=== PATIENT | female | born 1975 | race Asian ===

== ENCOUNTER 2017-01-28 09:58 | Emergency (ER) | payer OTHER ==
[~2017-01-28] VITALS: Ht 157.5 cm; Wt 71.0 kg
[~2017-01-28 09:58] MED LIST: ACET650T85
[2017-01-28 10:03] VITALS: Ht 157.5 cm; Wt 71.0 kg
[2017-01-28] MEDS ORDERED: ONDANSETRON (ODT) 4 MG TAB ODT STA (10:39)
[2017-01-28] MEDS ORDERED: ACETAMINOPHEN 500 MG TAB PO STA (10:39)
[2017-01-28] MEDS ORDERED: SOD CHLORIDE 0.9% 1,000 ML IV ONE (11:00)
[2017-01-28] MEDS ORDERED: CYCLOBENZAPRINE 10 MG TAB PO ONE (11:00)
--- NOTE | 2017-01-28 11:00 | ERD ---
ER Documentation Chief Complaint Date/Time DATE: 01/28/17 TIME: 10:52 Chief Complaint Complains of a headache x 3 days HPI Patient is a 41-year-old female with no past medical history who presents to the ED with a gradual onset right-sided headache, right neck pain and right arm pain 3 days. She states that she has had this pain in the past and this is similar to what she has experienced in the past. Denies any trauma or falls. She has taken ibuprofen which has not helped with her symptoms. She denies blurry vision. She denies nausea or vomiting. She denies fever or chills. She denies recent URIs. She states that she has to turn her head to the left due to the pain on the right side of her neck. She also complains of right ear and right sinus pain. ROS All systems reviewed and are negative except as per history of present illness. Medications Home Meds Active Scripts Cyclobenzaprine Hcl* (Cyclobenzaprine Hcl*) 10 Mg Tablet, 10 MG PO TID, #15 TAB Prov:ANA LEES PA-C 01/28/17 Neomycin/Polymyxin/Hydrocort* (Cortisporin* Otic) 10 Ml Susp, 4 DROP RIGHT EAR QID for 7 Days, EA Prov:ANA LEES PA-C 01/28/17 Acetaminophen/Aspirin/Caffeine* (Excedrin*) 1 Tab Tab, 1 TAB PO BID for 14 Days , TAB Prov:ANA LEES PA-C 01/28/17 Reported Medications Acetaminophen (Tylenol 8 Hour) 650 Mg Tablet.sa 08/10/12 [none] No Conflict Check 06/27/11 Allergies Allergies: Coded Allergies: No Known Drug Allergies (Verified Allergy, 10/04/12) PMhx/Soc History of Surgery: Yes (open abd surgery s/p trauma 02/20) Anesthesia Reaction: No Hx Neurological Disorder: No Hx Respiratory Disorders: No Hx Cardiac Disorders: No Hx Psychiatric Problems: No Hx Miscellaneous Medical Probl: No Hx Alcohol Use: No Hx Substance Use: No Hx Tobacco Use: No Smoking Status: Never smoker FmHx Family History: No coronary disease, No diabetes, No other Physical Exam Vitals Vital Signs Date Time Temp Pulse Resp B/P Pulse Ox O2 Delivery O2 Flow Rate FiO2 01/28/17 10:03 98.5 101 20 132/69 99 Physical Exam GENERAL: Well-developed, well-nourished female. Appears in no acute distress. HEAD: Normocephalic, atraumatic. EYES: Pupils are equally reactive bilaterally. EOMs grossly intact. No conjunctival erythema. ENT: Moist mucous membranes. No uvula deviation. No kissing tonsils. No exudates. Slight tenderness with insertion of speculum in the right ear. No pinna or tragus tenderness NECK: Supple. No lymphadenopathy or thyromegaly. No meningismus. negative kernig. negative brudinski. Tenderness on the right side of her neck. No spinal tenderness. No step-offs or deformities. Positive cervical radiculopathy on the right side. LUNG: Clear to auscultation bilaterally. No rhonchi, wheezing, rales or coarse breath sounds. HEART: Regular rate and rhythm. No murmurs, rubs or gallops. ABDOMEN: No scars, ecchymosis or rashes noted. Soft, nontender, and nondistended. Positive bowel sounds in all four quadrants. No rebound tenderness , no guarding. (-) McBurneys point tenderness. No CVA tenderness. BACK: No midline tenderness. Extremities: Equal pulses bilaterally. No peripheral clubbing, cyanosis or edema. No unilateral leg swelling. NEUROLOGIC: Alert and oriented. Moving all four extremities. 5/5 strength in all extremities. Normal speech. Steady gait. No ataxia. Negative Romberg test. Cranial nerves II through XII intact. SKIN: Normal color. Warm and dry. No rashes or lesions. Capillary refill < 2 seconds Results 24 hrs Current Medications Medications (Trade) Dose Ordered Sig/[place] Route PRN Reason Start Time Stop Time Status Last Admin Dose Admin Sodium Chloride (NS) 1,000 ml @ 1,000 mls/hr Q1H ONCE IV 01/28/17 11:00 01/28/17 11:59 DC 01/28/17 10:58 Cyclobenzaprine HCl (Flexeril) 10 mg ONCE ONCE PO 01/28/17 11:00 01/28/17 11:01 DC 01/28/17 10:58 Acetaminophen (Tylenol Tab) 1,000 mg ONCE STAT PO 01/28/17 10:39 01/28/17 10:47 DC 01/28/17 10:58 Ondansetron HCl (Zofran Odt) 4 mg ONCE STAT ODT 01/28/17 10:39 01/28/17 10:47 DC 01/28/17 10:58 Procedures/MDM ER COURSE: I kept the patient and/or family informed of laboratory and diagnostic imaging results throughout the emergency room course. MEDICATIONS IV fluids, Tylenol, Flexeril and Zofran. Tolerated well and stated improvement in symptoms. Negative test. MEDICAL DECISION MAKING: This is a 41-year-old who presents with gradual onset headache, neck pain 3 days Vital signs were reviewed. Patient is afebrile. Patient is not hypoxic. Patient is not toxic or ill-appearing. Patient's headache is mild with mild right-sided neck pain. I reexamined patient after administration of Medication and she stated improvement. At this point I do not think a CT scan is warranted as patient is neurovascularly intact, did not have a sudden onset of headache and it is similar to what she has experienced in the past. There is also no trauma. I believe that the risks outweigh the benefits of a CT scan. Low suspicion for intracranial hemorrhage, meningitis, intracranial mass , concussion, temporal arteritis, stroke, elevated intracranial pressure, seizure. Low suspicion for dislocation, fracture, epidural abscess, herniation , osteomyelitis, meningitis, neurological deficit DISCHARGE: At this time, patient is stable for discharge and outpatient management with no new complaints during the ER course. Patient was sent home with Flexeril, Corticosporin otic and Excedrin. Patient will be discharged home with instructions to recheck for new or worsening symptoms such as fever, nausea, weakness, LOC and to follow up with primary care in the next 1-2 days. Patient was advised to return to the ER for any new or worsening symptoms. Plan was discussed and patient and/or family understands and agrees. Home instructions were given. Departure Diagnosis: Primary Impression: Headache Headache type: unspecified Headache chronicity pattern: unspecified pattern Intractability: not intractable Qualified Code: R51 - Nonintractable headache, unspecified chronicity pattern, unspecified headache type Additional Impressions: Ear pain, right Neck pain Condition: Stable ANA LEES PA-C Jan 28, 2017 11:00 ANA LEES PA-C Jan 28, 2017 11:00
[2017-01-28] MEDS ORDERED: EXCED PO (13:07)
[2017-01-28] MEDS ORDERED: CYCL-319 PO (13:08)
[2017-01-28] MEDS ORDERED: NPH10OT RIGHT EAR (13:08)
== END 2017-01-28 13:23 | disposition home or self-care (01) ==
LOC: FTE 09:58
DX: R51 Headache (principal); H92.01 Otalgia, right ear; M54.2 Cervicalgia
CPT/HCPCS: J7030; Z7610

== ENCOUNTER 2017-06-19 08:20 | Emergency (ER) | payer OTHER ==
[~2017-06-19] VITALS: Ht 157.5 cm; Wt 68.9 kg
[~2017-06-19 08:20] MED LIST changes: +CYCL-319 PO; +EXCED PO; +NPH10OT RIGHT EAR
[2017-06-19 08:25] VITALS: Ht 157.5 cm; Wt 68.9 kg
[2017-06-19] MEDS ORDERED: ONDANSETRON (ODT) 4 MG TAB ODT STA ×2 (08:43)
[2017-06-19] MEDS ORDERED: HYDROCODONE/APAP (5/325) TAB PO ONE (09:00)
--- NOTE | 2017-06-19 09:14 | RADRPT ---
PROCEDURE: CT brain without contrast CLINICAL INDICATION: Status post fall, trauma/injury right side of head TECHNIQUE: CT of the brain without contrast was performed on a multidetector CT scanner, with multi planar reformats. One or more of the following dose reduction techniques were used: Automated expos ure control, adjustment in mA and / or kV according to patient size, use of iterative reconstructive technique. CTDIvol = 42 mGy; DLP = 630 mGy-cm. COMPARISON: CT brain 10/04/2012 FINDINGS: No acute intracranial hemorrhage is identified. No extra-axial fluid collection is seen. There is no mass effect. No midline shift is identified. Ventricles and sulci are within normal limits for size and configuration. The density of the brain is within normal limits. Vizcarra-white differentiation is preserved. Calvarium and skull base are intact. Mastoid air cells and imaged paranasal sinuses grossly clear. IMPRESSION: Unremarkable noncontrast CT of the brain. RPTAT: VV .Ki Bhakta MD, MD Date Time Electronically viewed and signed by .Ki Bhakta MD, on 06/19/2017 09:14 .O/
--- NOTE | 2017-06-19 09:22 | RADRPT ---
PROCEDURE: CT cervical spine without contrast. CLINICAL INDICATION: Status post fall, pain right neck TECHNIQUE: CT of the cervical spine without contrast was performed on a multidetector CT scanner, w ith multiplanar reformats. One or more of the following dose reduction techniques were used: Automa eusebio exposure control, adjustment in mA and / or kV according to patient size, use of iterative recon structive technique. CTDIvol = 22 mGy and DLP = 410 mGy-cm. COMPARISON: None available. FINDINGS: No fracture or dislocation is identified. There is straightening of the lordosis of the cervical sp ine. Alignment is intact. The vertebral bodies are maintained in height. There are mild anterior atlantoaxial joint degenerative changes. Disc spaces are maintained in height. Minimal to mild pos terior disc bulging is seen at C2-3 through C6-7 without central canal stenosis or foraminal narrowi ng identified. IMPRESSION: 1. No fracture/dislocation. 2. Mild cervical spondylosis described above. RPTAT: VV .Ki Bhakta MD, MD Date Time Electronically viewed and signed by .Ki Bhakta MD, on 06/19/2017 09:22 .O/
--- NOTE | 2017-06-19 09:32 | ERD ---
ER Documentation Chief Complaint Chief Complaint Neck/shoulder pain x yesterday after s/f HPI This is a 41-year-old female who presents the emergency department today complaining of headache and dizziness and neck pain after slipping and falling on the floor yesterday. Patient states that she threw up 3 times last night and has a headache but she does have a history of headaches. Denies any fevers or chills. Denies any loss of consciousness ROS All systems reviewed and are negative except as per history of present illness. Medications Home Meds Active Scripts Ondansetron Hcl* (Zofran*) 4 Mg Tablet, 4 MG PO Q6H for NAUSEA AND/OR VOMITING, #30 TAB Prov:OFELIA ISIDRO PA-C 06/19/17 Cyclobenzaprine Hcl* (Cyclobenzaprine Hcl*) 10 Mg Tablet, 10 MG PO QHS, #7 TAB Prov:OFELIA ISIDRO PA-C 06/19/17 Acetaminophen* (Tylophen*) 500 Mg Capsule, 1 CAP PO Q6H Y for PAIN AND OR ELEVATED TEMP, #30 CAP Prov:OFELIA ISIDRO PA-C 06/19/17 Tramadol HCl (Tramadol HCl) 50 Mg Tablet, 50 MG PO Q4 Y for PAIN, #20 TAB Prov:OFELIA ISIDRO PA-C 06/19/17 Cyclobenzaprine Hcl* (Cyclobenzaprine Hcl*) 10 Mg Tablet, 10 MG PO TID, #15 TAB Prov:ANA LEES PA-C 01/28/17 Neomycin/Polymyxin/Hydrocort* (Cortisporin* Otic) 10 Ml Susp, 4 DROP RIGHT EAR QID for 7 Days, EA Prov:ANA LEES PA-C 01/28/17 Acetaminophen/Aspirin/Caffeine* (Excedrin*) 1 Tab Tab, 1 TAB PO BID for 14 Days , TAB Prov:ANA LEES PA-C 01/28/17 Reported Medications Acetaminophen (Tylenol 8 Hour) 650 Mg Tablet.sa 08/10/12 [none] No Conflict Check 06/27/11 Allergies Allergies: Coded Allergies: No Known Drug Allergies (Verified Allergy, Unknown, 06/19/17) PMhx/Soc History of Surgery: Yes (open abd surgery s/p trauma 02/20) Anesthesia Reaction: No Hx Neurological Disorder: No Hx Respiratory Disorders: No Hx Cardiac Disorders: No Hx Psychiatric Problems: No Hx Miscellaneous Medical Probl: No Hx Alcohol Use: No Hx Substance Use: No Hx Tobacco Use: No Smoking Status: Never smoker Physical Exam Vitals Vital Signs Date Time Temp Pulse Resp B/P Pulse Ox O2 Delivery O2 Flow Rate FiO2 06/19/17 08:25 97.8 74 18 124/73 99 Physical Exam Const: NAD Head: Atraumatic Eyes: Normal Conjunctiva PERRLA. EOM intact. ENT: Normal External Ears, Nose and Mouth. Tympanum. No epistaxis. Neck: Decreased range of motion due to pain..~ No meningismus. Midline tenderness and bilateral paraspinal tenderness. Pulses 2+. Distal neurovascularly intact. Resp: Clear to auscultation bilaterally Cardio: Regular rate and rhythm, no murmurs Abd: Soft, non tender, non distended. Normal bowel sounds Skin: No petechiae or rashes Back: No midline or flank tenderness Ext: No cyanosis, or edema Neur: Awake and alert. Cranial nerves II through XII intact. No gait ataxia. Psych: Normal Mood and Affect Results 24 hrs Laboratory Tests Test 06/19/17 08:50 Urine Color STRAW Urine Clarity CLEAR Urine pH 6.0 Urine Specific [place] 1.006 Urine Ketones NEGATIVEmg/dL Urine Nitrite NEGATIVEmg/dL Urine Bilirubin NEGATIVEmg/dL Urine Urobilinogen NEGATIVEmg/dL Urine Leukocyte Esterase NEGATIVELeu/ul Urine Microscopic RBC 2/HPF Urine Microscopic WBC 1/HPF Urine Squamous Epithelial Cells FEW/HPF Urine Hemoglobin 1+mg/dL Urine Glucose NEGATIVEmg/dL Urine Total Protein NEGATIVEmg/dl Current Medications Medications (Trade) Dose Ordered Sig/[place] Route PRN Reason Start Time Stop Time Status Last Admin Dose Admin Acetaminophen/ Hydrocodone Bitart ([place]hey (5/325)) 1 tab ONCE ONCE PO 06/19/17 09:00 06/19/17 09:01 DC 06/19/17 08:55 Ondansetron HCl (Zofran Odt) 4 mg ONCE STAT ODT 06/19/17 08:43 06/19/17 08:45 DC 06/19/17 08:55 Ondansetron HCl (Zofran Odt) 4 mg ONCE STAT ODT 06/19/17 08:43 06/19/17 08:45 DC DIAGNOSTIC IMAGING REPORT Patient: BLAKE CASTREJON : 1975 Age: 41 Sex: F MR #: [id number] DOS: 06/19/17 0000 Ordering MD: OFELIA ISIDRO PA-C Location: [facility] Room/Bed: PROCEDURE: CT brain without contrast CLINICAL INDICATION: Status post fall, trauma/injury right side of head TECHNIQUE: CT of the brain without contrast was performed on a multidetector CT scanner, with multiplanar reformats. One or more of the following dose reduction techniques were used: Automated exposure control, adjustment in mA and / or kV according to patient size, use of iterative reconstructive technique. CTDIvol = 42 mGy; DLP = 630 mGy-cm. COMPARISON: CT brain 10/04/2012 FINDINGS: No acute intracranial hemorrhage is identified. No extra-axial fluid collection is seen. There is no mass effect. No midline shift is identified. Ventricles and sulci are within normal limits for size and configuration. The density of the brain is within normal limits. Vizcarra-white differentiation is preserved. Calvarium and skull base are intact. Mastoid air cells and imaged paranasal sinuses grossly clear. IMPRESSION: Unremarkable noncontrast CT of the brain. RPTAT: VV .Ki Bhakta MD, MD Date Time Electronically viewed and signed by .Ki Bhakta MD, MD on 06/19/2017 09:14 .O/ CC: OFELIA ISIDRO PA-C DIAGNOSTIC IMAGING REPORT Patient: BLAKE CASTREJON : 1975 Age: 41 Sex: F MR #: [id number] DOS: 06/19/17 0000 Ordering MD: OFELIA ISIDRO PA-C Location: [facility] Room/Bed: PROCEDURE: CT cervical spine without contrast. CLINICAL INDICATION: Status post fall, pain right neck TECHNIQUE: CT of the cervical spine without contrast was performed on a multidetector CT scanner, with multiplanar reformats. One or more of the following dose reduction techniques were used: Automated exposure control, adjustment in mA and / or kV according to patient size, use of iterative reconstructive technique. CTDIvol = 22 mGy and DLP = 410 mGy-cm. COMPARISON: None available. FINDINGS: No fracture or dislocation is identified. There is straightening of the lordosis of the cervical spine. Alignment is intact. The vertebral bodies are maintained in height. There are mild anterior atlantoaxial joint degenerative changes. Disc spaces are maintained in height. Minimal to mild posterior disc bulging is seen at C2-3 through C6-7 without central canal stenosis or foraminal narrowing identified. IMPRESSION: 1. No fracture/dislocation. 2. Mild cervical spondylosis described above. RPTAT: VV .Ki Bhakta MD, MD Date Time Electronically viewed and signed by .Ki Bhakta MD, MD on 06/19/2017 09:22 .O/ CC: OFELIA ISIDRO PA-C Procedures/MDM This is a 41-year-old female who presents the emergency department today complaining of right-sided headache and neck pain after slipping and falling on the floor yesterday. Patient denies any loss of consciousness however she did state that she will vomited last night and she feels dizzy. Given patient's symptoms I did obtain images. Per the radiology report images of the vocal spine show no fracture dislocation. There is straightening of the lordosis of the cervical spine. There are mild degenerative changes. There is minimal to mild posterior disc bulging seen at C2 through 3 and C6 through 7 without central canal stenosis or foraminal narrowing. CT noncontrast is unremarkable. There is no mass-effect, midline shift there is no acute intracranial hemorrhage. UA is negative for infection. Symptoms at this time is consistent with acute head injury and neck pain secondary to fall. Low suspicion, for acute hemorrhage, mass, meningitis, acute fracture or dislocation. Given Hershey and Zofran here in the emergency department and symptoms improved. She will be given a prescription for tramadol, Zofran, Tylenl and Flexeril for home. At this time the patient is stable for discharge and outpatient management. Patient should follow up with their PCP in the next 1-2 days. They may return to the emergency department sooner for any persistent or worsening of symptoms. Patient understood and agreed with the plan. Departure Diagnosis: Primary Impression: Acute head injury Encounter type: initial encounter Qualified Code: S09.90XA - Acute head injury, initial encounter Additional Impression: Injury of neck Encounter type: initial encounter Qualified Code: S19.9XXA - Injury of neck , initial encounter Condition: OFELIA Mondragon PA-C Jun 19, 2017 09:32
[2017-06-19] MEDS ORDERED: TRAM50TA2 PO (09:37)
[2017-06-19] MEDS ORDERED: CYCL-319 PO (09:38)
[2017-06-19] MEDS ORDERED: ACET500C5 PO (09:38)
[2017-06-19] MEDS ORDERED: ONDA4TAB8 PO (09:39)
== END 2017-06-19 09:48 | disposition home or self-care (01) ==
LOC: FTE 08:20
DX: S09.90XA Unspecified injury of head, initial encounter (principal); S19.9XXA Unspecified injury of neck, initial encounter; R51 Headache; W01.0XXA Fall on same level from slipping, tripping and stumbling without subsequent striking against object, initial encounter; Y92.9 Unspecified place or not applicable
CPT/HCPCS: 70450; 72125; 81001; Z7502; Z7610

== ENCOUNTER 2018-09-05 09:29 | Emergency (ER) | payer OTHER ==
[~2018-09-05] VITALS: Ht 162.6 cm; Wt 66.5 kg
[~2018-09-05 09:29] MED LIST changes: +ACET500C5 PO; -CYCL-319 PO; +CYCL10TA7 PO; +ONDA4TAB8 PO; +TRAM50TA2 PO
[2018-09-05 09:30] VITALS: BP 133/74; PULSE 76; RESP 18; Ht 162.6 cm; Wt 66.5 kg
[2018-09-05] MEDS ORDERED: SODI126M NASAL (10:44)
[2018-09-05] MEDS ORDERED: GUAI-637 PO (10:44)
--- NOTE | 2018-09-05 10:54 | ERD ---
ER Documentation Chief Complaint Chief Complaint FEVER , COUGH ,ST, STUFFY NOSE X 3 DAYS HPI 43-year-old female complaining of nasal congestion, cough, and neck pain x2 3 days. Patient reports temperature at night of 99 - 100 degrees. Cough is nonproductive, worse at night. Patient states the neck pain is on the bilateral anterior neck, only hurts when she is touching it. Denies pain at rest or with movement. In addition, patient reports pain in the right anterior chest, worse with taking deep breath or cough when coughing. Patient takes ibuprofen, which resolved the pain. By the pain returns after several hours. Denies shortness of breath. Denies abdominal pain, vomiting, diarrhea. Denies any past medical history. ROS All systems reviewed and are negative except as per history of present illness. Medications Home Meds Active Scripts Guaifenesin* (Robitussin*) 100 Mg/5 Ml Syrup, 200 MG PO Q4H PRN for COUGH, #120 ML Prov:VARGAS BARNES. [employer] 09/05/18 Sodium Chloride (Saline Nasal Mist) 126 Ml Mist, 2 SPRAY NASAL Q2H PRN for NASAL CONGESTION, #1 BOTTLE Prov:VARGAS BARNES. [employer] 09/05/18 Ondansetron Hcl* (Zofran*) 4 Mg Tablet, 4 MG PO Q6H for NAUSEA AND/OR VOMITING, #30 TAB Prov:OFELIA ISIDRO PA-C 06/19/17 Cyclobenzaprine Hcl* (Cyclobenzaprine Hcl*) 10 Mg Tablet, 10 MG PO QHS, #7 TAB Prov:OFELIA ISIDRO PA-C 06/19/17 Acetaminophen* (Tylophen*) 500 Mg Capsule, 1 CAP PO Q6H PRN for PAIN AND OR ELEVATED TEMP, #30 CAP Prov:OFELIA ISIDRO PA-C 06/19/17 Tramadol HCl (Tramadol HCl) 50 Mg Tablet, 50 MG PO Q4 PRN for PAIN, #20 TAB Prov:OFELIA ISIDRO PA-C 06/19/17 Cyclobenzaprine Hcl* (Cyclobenzaprine Hcl*) 10 Mg Tablet, 10 MG PO TID, #15 TAB Prov:ANA LEES PA-C 01/28/17 Neomycin/Polymyxin/Hydrocort* (Cortisporin* Otic) 10 Ml Susp, 4 DROP RIGHT EAR QID for 7 Days, EA Prov:ANA LEES PA-C 01/28/17 Acetaminophen/Aspirin/Caffeine* (Excedrin*) 1 Tab Tab, 1 TAB PO BID for 14 Days, TAB Prov:ANA LEES PA-C 01/28/17 Reported Medications Acetaminophen (Tylenol 8 Hour) 650 Mg Tablet.sa 08/10/12 [none] No Conflict Check 06/27/11 Allergies Allergies: Coded Allergies: No Known Drug Allergies (Verified Allergy, Unknown, 06/19/17) PMhx/Soc History of Surgery: Yes (open abd surgery s/p trauma 02/20) Anesthesia Reaction: No Hx Neurological Disorder: No Hx Respiratory Disorders: No Hx Cardiac Disorders: No Hx Psychiatric Problems: No Hx Miscellaneous Medical Probl: No Hx Alcohol Use: No Hx Substance Use: No Hx Tobacco Use: No Physical Exam Vitals Vital Signs Date Temp Pulse Resp B/P (MAP) Pulse Ox O2 O2 Flow FiO2 Time Delivery Rate 09/05/18 97.6 76 18 133/74 99 09:30 (93) Physical Exam General: Well-developed, well-nourished, conscious and coherent, in no distress Skin: Warm and dry without rash, good texture and turgor Head: Normocephalic without evidence of trauma Eyes: Sclera and conjunctivae normal Nose/Face: Nasal congestion Mouth/throat: Mucous membranes are moist. Posterior pharynx clear without erythema or exudates Neck: Supple without meningismus or adenopathy. Carotids are equal. Trachea midline. No bruits or JVD Chest: Normal AP diameter. Good expansion without retractions. Right anterior chest wall tenderness. Lungs are clear to auscultate bilaterally with good tidal volume Heart: Regular rate and rhythm. No murmur, rub, or gallops heard Extremities: Full range of motion. Good strength bilaterally. No erythema, ecchymosis, or edema. Peripheral pulses are intact. Sensation intact Neuro: Alert and oriented 4, GCS 15. Procedures/MDM Patient is afebrile, in no respiratory distress. Lungs are clear to auscultate. I doubt that patient has pneumonia or bronchitis. Likely patient's symptoms are result of viral upper respiratory infection. Patient has reproducible right chest wall tenderness, likely costochondritis secondary to coughing. Low suspicion for ACS, pneumonia, pneumothorax, PE, or aortic dissection. Patient appears well, stable for discharge and outpatient management. Medical decision making shared with patient and family. Education provided to patient and family. Patient and family expressed understanding of the plan. Medications on discharge: Saline nasal spray, Robitussin. Follow-up: Primary care provider in 2-3 days or return to ED if worse. Disclaimer: Inadvertent spelling and grammatical errors are likely due to EHR/dictation software use and do not reflect on the overall quality of patient care. Also, please note that the electronic time recorded on this note does not necessarily reflect the actual time of the patient encounter. Departure Diagnosis: Primary Impression: Upper respiratory infection URI type: acute nasopharyngitis (common cold) Qualified Codes: J00 - Acute nasopharyngitis [common cold] Condition: Stable Patient Instructions: Adult Self-Care for Colds Referrals: DOCTOR,NOT ON STAFF (PCP) Additional Instructions: Call your primary care doctor TOMORROW for an appointment during the next 2-3 days.See the doctor sooner or return here if your condition worsens before your appointment time. VARGAS BARNES NP Sep 05, 2018 10:54
== END 2018-09-05 11:03 | disposition home or self-care (01) ==
LOC: FTE 09:29
DX: J00 Acute nasopharyngitis [common cold] (principal); R40.2412 Glasgow coma scale score 13-15, at arrival to emergency department
CPT/HCPCS: 99282

== ENCOUNTER 2019-02-10 09:53 | Emergency (ER) | payer OTHER ==
[~2019-02-10] VITALS: Ht 152.4 cm; Wt 63.4 kg
[~2019-02-10 09:53] MED LIST changes: +GUAI-637 PO; +SODI126M NASAL
[2019-02-10 09:57] VITALS: BP 121/61; PULSE 64; RESP 18; Ht 152.4 cm; Wt 63.4 kg
[2019-02-10] MEDS ORDERED: CEPH-443 PO (11:11)
--- NOTE | 2019-02-10 19:46 | ERD ---
ER Documentation Chief Complaint Chief Complaint pelvic pain w/painful urination x4 days HPI 43-year-old female presents with complaint of dysuria and suprapubic pain for the past 4 days. Patient denies any treatments. Patient denies any nausea, vomiting, diarrhea, fevers, chills, back pain, hematuria, flank pain. ROS All systems reviewed and are negative except as per history of present illness. Medications Home Meds Active Scripts Cephalexin* (Keflex*) 500 Mg Capsule, 500 MG PO BID for 7 Days, CAP Prov:NANDINI LARRY 02/10/19 Guaifenesin* (Robitussin*) 100 Mg/5 Ml Syrup, 200 MG PO Q4H PRN for COUGH, #120 ML Prov:VARGAS BARNES. CAREER TRANSITION SPECIALIST 09/05/18 Sodium Chloride (Saline Nasal Mist) 126 Ml Mist, 2 SPRAY NASAL Q2H PRN for NASAL CONGESTION, #1 BOTTLE Prov:VARGAS BARNES. CAREER TRANSITION SPECIALIST 09/05/18 Ondansetron Hcl* (Zofran*) 4 Mg Tablet, 4 MG PO Q6H for NAUSEA AND/OR VOMITING, #30 TAB Prov:OFELIA ISIDRO PA-C 06/19/17 Cyclobenzaprine Hcl* (Cyclobenzaprine Hcl*) 10 Mg Tablet, 10 MG PO QHS, #7 TAB Prov:OFELIA ISIDRO PA-C 06/19/17 Acetaminophen* (Tylophen*) 500 Mg Capsule, 1 CAP PO Q6H PRN for PAIN AND OR ELEVATED TEMP, #30 CAP Prov:OFELIA ISIDRO PA-C 06/19/17 Tramadol HCl (Tramadol HCl) 50 Mg Tablet, 50 MG PO Q4 PRN for PAIN, #20 TAB Prov:OFELIA ISIDRO PA-C 06/19/17 Cyclobenzaprine Hcl* (Cyclobenzaprine Hcl*) 10 Mg Tablet, 10 MG PO TID, #15 TAB Prov:ANA LEES PA-C 01/28/17 Neomycin/Polymyxin/Hydrocort* (Cortisporin* Otic) 10 Ml Susp, 4 DROP RIGHT EAR QID for 7 Days, EA Prov:ANA LEES PA-C 01/28/17 Acetaminophen/Aspirin/Caffeine* (Excedrin*) 1 Tab Tab, 1 TAB PO BID for 14 Days, TAB Prov:ANA LEES PA-C 01/28/17 Reported Medications Acetaminophen (Tylenol 8 Hour) 650 Mg Tablet.sa 08/10/12 [none] No Conflict Check 06/27/11 Allergies Allergies: Coded Allergies: No Known Drug Allergies (Verified Allergy, Unknown, 06/19/17) PMhx/Soc History of Surgery: Yes (open abd surgery s/p trauma 02/20) Anesthesia Reaction: No Hx Neurological Disorder: No Hx Respiratory Disorders: No Hx Cardiac Disorders: No Hx Psychiatric Problems: No Hx Miscellaneous Medical Probl: No Hx Alcohol Use: No Hx Substance Use: No Hx Tobacco Use: No FmHx Family History: No diabetes, No coronary disease, No other Physical Exam Vitals Vital Signs Date Temp Pulse Resp B/P (MAP) Pulse Ox O2 O2 Flow FiO2 Time Delivery Rate 02/10/19 98.5 64 18 121/61 100 09:57 (81) Physical Exam Const: No acute distress Head: Atraumatic Eyes: Normal Conjunctiva ENT: Normal External Ears, Nose and Mouth. Neck: Full range of motion. No meningismus. Resp: Clear to auscultation bilaterally Cardio: Regular rate and rhythm, no murmurs Abd: Mild suprapubic tenderness without guarding or rigidity. Skin: No petechiae or rashes Back: No midline or flank tenderness Ext: No cyanosis, or edema Neur: Awake and alert Psych: Normal Mood and Affect Results 24 hrs Laboratory Tests Test 02/10/19 11:13 02/10/19 11:14 POC Beta HCG, Qualitative NEGATIVE Bedside Urine pH (LAB) 5.5 Bedside Urine Protein (LAB) Negative Bedside Urine Glucose (UA) Negative Bedside Urine Ketones (LAB) Negative Bedside Urine Blood Trace-intact Bedside Urine Nitrite (LAB) Negative Bedside Urine Leukocyte Esterase (L Negative Procedures/MDM MDM: Patient presentation consistent with uncomplicated UTI. Patient was given Rx for Keflex and advised to follow-up with primary care. I have low suspicion for ectopic , ovarian torsion, PID, tubo-ovarian abscess, uterine prolapse, ovarian cancer, uterine cancer, nephrolithiasis, pyelonephritis, appendicitis, diverticulitis, bowel obstruction, perirectal abscess. At this time, patient is stable for discharge and outpatient management. I have instructed the patient to follow-up with his/her primary care physician in 1-2 days. I have discussed with the patient the possibility of needing to see a specialist for further workup and imaging studies if symptoms persist. I have instructed the patient to promptly return to the ER for any new or worsening symptoms including but not limited to increased pain, fever, nausea, vomiting, weakness or LOC. The patient and/or family expressed understanding of and agreement with this plan. All questions were answered. Home care instructions were provided. DISCLAIMER: Inadvertent spelling and grammatical errors are likely due to EHR/dictation software use and do not reflect on the overall quality of patient care. Also, please note that the electronic time recorded on this note does not necessarily reflect the actual time of the patient encounter. Departure Diagnosis: Primary Impression: UTI (urinary tract infection) Condition: Stable Patient Instructions: Understanding Urinary Tract Infections (UTIs) Referrals: [facility] YOU HAVE RECEIVED A MEDICAL SCREENING EXAM AND THE RESULTS INDICATE THAT YOU DO NOT HAVE A CONDITION THAT REQUIRES URGENT TREATMENT IN THE EMERGENCY DEPARTMENT. FURTHER EVALUATION AND TREATMENT OF YOUR CONDITION CAN WAIT UNTIL YOU ARE SEEN IN YOUR DOCTORS OFFICE WITHIN THE NEXT 1-2 DAYS. IT IS YOUR RESPONSIBILITY TO MAKE AN APPOINTMENT FOR FOLOW-UP CARE. IF YOU HAVE A PRIMARY DOCTOR --you should call your primary doctor and schedule an appointment IF YOU DO NOT HAVE A PRIMARY DOCTOR YOU CAN CALL OUR PHYSICIAN REFERRAL HOTLINE AT IF YOU CAN NOT AFFORD TO SEE A PHYSICIAN YOU CAN CHOSE FROM THE FOLLOWING [facility] [id number] [facility] [address] [facility] [facility] [address] [facility] [facility] [address] [facility] [address] [facility] [facility] [address] Additional Instructions: FOLLOW UP WITH YOUR PRIMARY CARE PHYSICIAN TOMORROW.Return to this facility if you are not improving as expected. NANDINI LARRY Feb 10, 2019 19:46
== END 2019-02-10 11:32 | disposition home or self-care (01) ==
LOC: FTE 09:53
DX: N39.0 Urinary tract infection, site not specified (principal)
CPT/HCPCS: 81003; 81025; 87086; Z7502; 99283